=== PATIENT | male | born 1985 | race Caucasian/White ===

== ENCOUNTER 2018-08-12 23:40 | Emergency (ER) | payer SELFPAY ==
--- NOTE | 2018-08-13 10:40 | PDOC.ERCMPRO ---
Care Management Progress Note 08/13-Dr. Avina requested assistance with a PCP and MIRIAN f/u. 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 Referral faxed to [facility] to schedule f/u, establishing patient care, and to refer to MIRIAN.
--- NOTE | 2018-08-13 10:43 | CMPROGNOTE_ITS ---
Care Management Progress Note 08/13-Dr. Avina requested assistance with a PCP and MIRIAN f/u. 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 Referral faxed to [facility] to schedule f/u, establishing patient care, and to refer to MIRIAN.
== END 2018-08-13 04:00 ==
LOC: ER 08-13 04:47
PROVIDERS: Emergency Provider Emergency Medicine
DX: F11.93 Opioid use, unspecified with withdrawal (principal)
CPT/HCPCS: 99283